=== PATIENT | female | born 1955 | race Caucasian/White ===

== ENCOUNTER 2018-09-20 05:52 | Day surgery (SDC) | payer MEDICARE, OTHER ==
[~2018-09-20] VITALS: Ht 167.6 cm; Wt 74.1 kg
[2018-09-20 06:36] VITALS: BP 120/75
[2018-09-20] MEDS ORDERED: LACTATED RINGERS 1,000 ML IV SCH (06:45)
[2018-09-20 06:49] VITALS: BP 120/75
[2018-09-20] MEDS ORDERED: CYCL-259 PO (06:49)
[2018-09-20] MEDS ORDERED: HYDR25TA11 PO (06:49)
[2018-09-20] MEDS ORDERED: ALPR0.5T6 PO (06:49)
[2018-09-20] MEDS ORDERED: HYDR-3241 PO (06:49)
[2018-09-20] MEDS ORDERED: GABA300C10 PO (06:49)
[2018-09-20] MEDS ORDERED: PANT20TA3 PO (06:49)
[2018-09-20] MEDS ORDERED: LIDOCAINE-MPF 1%, 2ML ONE (07:00)
[2018-09-20] MEDS ORDERED: MIDAZOLAM 1 MG/ML, 2ML ONE (07:24)
[2018-09-20] MEDS ORDERED: FENTANYL PF 250 MCG/5ML ONE (07:24)
[2018-09-20] MEDS ORDERED: PROPOFOL 10 MG/ML, 20ML ONE (07:25)
[2018-09-20] MEDS ORDERED: SUCCINYLCHOLINE 20 MG/ML, 10ML ONE (07:25)
[2018-09-20] MEDS ORDERED: LIDOCAINE-MPF 1%, 2ML INFIL ONE (07:30)
[2018-09-20] MEDS ORDERED: PHENYLEPHRINE 10 MG/ML ONE (07:45)
[2018-09-20] MEDS ORDERED: DEXAMETHASONE 4 MG/ML, 1ML ONE (07:45)
[2018-09-20] MEDS ORDERED: ONDANSETRON 2MG/ML, 2ML ONE (07:45)
[2018-09-20] MEDS ORDERED: HALOPERIDOL 5 MG/ML IV PRN (08:30)
[2018-09-20] MEDS ORDERED: FENTANYL PF 100 MCG/2ML IV PRN (08:30)
[2018-09-20] MEDS ORDERED: OXYcodone 5 MG/5 ML ORAL.SOL UDC PO PRN (08:30)
[2018-09-20] MEDS ORDERED: hydrALAzine 20 MG/ML, 1ML IV PRN (08:30)
[2018-09-20] MEDS ORDERED: PROMETHAZINE 25 MG/ML, 1ML IV PRN (08:30)
[2018-09-20] MEDS ORDERED: MEPERIDINE/PF 25MG/0.5ML IVPush PRN (08:30)
[2018-09-20] MEDS ORDERED: ACETAMINOPHEN 325 MG TABLET PO PRN (08:30)
[2018-09-20] MEDS ORDERED: HYDROmorphone 2 MG/ML, 1ML IVPush PRN (08:30)
[2018-09-20] MEDS ORDERED: LORazepam 2 MG/ML, 1ML IVPush PRN (08:30)
== END 2018-09-20 10:15 | disposition home or self-care (01) ==
LOC: OUT 05:52
PROVIDERS: ATTEND Internal Medicine Geriatric Medicine
DX: K21.0 Gastro-esophageal reflux disease with esophagitis (principal)
CPT/HCPCS: 43237; 43239; 88305; 93005; J0330; J1100; J2250; J2370; J2405; J2704; J3010; J3490; J7120